=== PATIENT | male | born 1990 | race African-American/Black ===

== ENCOUNTER 2022-02-27 16:20 | Outpatient (CLI) | payer OTHER, MEDICAID, SELFPAY | END 2022-02-27 16:21 | disposition home or self-care (01) | LOC: AMB 03-29 20:19 | PROVIDERS: Visit Provider Family Medicine | DX: S19.9XXA Unspecified injury of neck, initial encounter (principal); S49.92XA Unspecified injury of left shoulder and upper arm, initial encounter; V49.9XXA Car occupant (driver) (passenger) injured in unspecified traffic accident, initial encounter; Y92.410 Unspecified street and highway as the place of occurrence of the external cause | CPT/HCPCS: A0425; A0427 ==